=== PATIENT | female | born 1955 | race Caucasian/White ===

== ENCOUNTER → 2017-09-12 | Outpatient (CLI) | payer OTHER ==
--- NOTE | 2017-09-12 13:49 | US ---
EXAM DESCRIPTION: Extremity,Lower Bg Arteries: Ultrasound. CLINICAL HISTORY: PVD COMPARISON: None. TECHNIQUE: Doppler evaluation of the bilateral lower extremity arterial flow waveforms and velocities. FINDINGS: Arterial waveforms in the right lower extremity are all triphasic and minimally dampened in the right CYLINDER TESTER. More dampened in the femoral artery, popliteal artery. Peroneal artery and [employer]. No flow in the right DPA.. Arterial waveforms in the left lower extremity are monophasic in the left common femoral artery and more dampened in the proximal left femoral artery. No flow in the mid and distal left femoral artery. Dampened monophasic flow in the left popliteal, peroneal and left [employer]TING [employer] OPERATOR vessels. Significantly dampened monophasic waveform in the left DPA.. Comments: Bilateral peak systolic velocities reflect the waveforms. IMPRESSION: 1. Bilateral lower extremity arterial flow is significantly decreased with no flow in the distal right lower extremity and DPA. 2. No flow in the mid and distal left femoral artery. Diminished flow in the left lower leg is most likely due to collaterals. 3. Consider CTA aorta and bilateral lower extremities if clinically indicated. Electronically signed by: Dirk Lopez MD 09/12/2017 1:47 PM CDT
== END ==
LOC: US 12:24
PROVIDERS: ATTEND Family Medicine
DX: I73.9 Peripheral vascular disease, unspecified (principal); M79.604 Pain in right leg

== ENCOUNTER → 2017-09-12 | Outpatient (CLI) | payer OTHER ==
--- NOTE | 2017-09-12 16:38 | CT ---
EXAM DESCRIPTION: CTA Runoff CLINICAL HISTORY: 61 years, Female, PVD,PAIN IN RT LEG COMPARISON: Ultrasound lower extremity Doppler September TECHNIQUE: Rapid bolus administration of 100 mL of Isovue 370 IV contrast was performed with thin-section axial scanning of the abdomen, pelvis and lower extremities performed in a dynamic fashion. Reconstructed multiplanar and three dimensional MIP images created on a separate dedicated workstation are reviewed along with the source axial images and stored in the patient's medical record. FINDINGS: Mild scarring in the inferior lingula and right middle lobe. Heart is large. There is positive enhancement of cardiac chambers and lower aorta. CT angiography abdomen Positive enhancement of the aorta is seen without aneurysm. Arteriosclerotic irregularity is present. There is positive enhancement of celiac and superior mesenteric arteries as well as the inferior mesenteric artery. Positive enhancement of the renal arteries. Two renal arteries are seen on the left with single renal artery on the right. Arteriosclerotic plaque causes 40% narrowing of the origin of the right renal artery. The upper smaller left renal artery appears widely patent whereas the lower left renal artery is severely stenotic at the origin approximately 85-90% with poststenotic dilatation. The nephrograms appear symmetrical. Nonangiographic findings include mildly prominent pancreatic duct with no focal pancreatic lesion. No calcified stones in the gallbladder. Positive early enhancement of liver and spleen. CT angiogram pelvis Positive enhancement of the common iliac arteries. There is extensive arteriosclerotic plaque with high-grade stenosis of the right and right common iliac artery approximately 70% and left common iliac artery approximately 75%. Calcified severely stenotic internal iliac arteries are noted bilaterally. The external iliac artery on the right is severely narrowed at the obturator level approximately 90% and then appears completely occluded just below this level. Collateral vessels are seen around the occluded segment of the right external iliac artery with severely narrowed right common femoral artery and dense calcified plaque in the proximal right superficial femoral artery. There is 75% narrowing of the right common femoral artery below the occluded segment of the distal right external iliac artery. On the left, extensive plaque in the left external carotid artery seen with multiple areas of 50-75% narrowing. There is plaque at the left common femoral origin with severe narrowing of the origins of profunda femoral and superficial femoral arteries. CT angiogram lower extremities Right Severe narrowing of right common femoral artery approximately 75% is noted. Severe narrowing of the proximal left superficial femoral artery is seen with diminutive lumen opacified to the level of the proximal third of the right thigh. Below this level SFA appears occluded at multiple levels. Collateral vessels are seen extending into the thigh from the right profunda femoral artery which is severely narrowed just beyond its origin approximately 70-85 %. Multiple tandem lesions in the 30-75% range are noted in the right profunda femoral artery. More distally, small collateral vessels reconstitute the right popliteal artery which is 50% to 75% narrowed throughout its length. There is positive enhancement of the anterior tibial artery on the right as well as the tibioperoneal trunk. These are very small. Small posterior tibial and peroneal arteries are visible. Three opacified arteries are visible to the level of the proximal third of the calf. The posterior tibial and anterior tibial arteries are seen extending to the level of the ankle with faint opacification of these vessels extending into the dorsalis pedis and plantar arch regions. Left Moderate narrowing of the left common femoral artery is seen approximately 50%. At the bifurcation, severe narrowing of the proximal superficial femoral artery is noted approximately 80%. There is high-grade stenosis of the proximal left profunda femoral artery, 90+ percent. Below this level multiple tandem lesions of the profunda femoral artery are noted which provides collateral vessels to the thigh. There is occlusion of the proximal superficial femoral artery on the left. Prominent muscular collaterals are seen throughout the musculature of the left thigh and there is collateral reconstitution of the distal left superficial femoral artery and upper popliteal artery. Positive opacification of popliteal artery is seen with 50% stenosis. Positive enhancement of anterior tibial artery, tibioperoneal trunk, posterior tibial artery and peroneal arteries. These are very small in size. Three vessels can be seen contrast opacified to the level of the lower thigh. At the ankle, two vessels are seen with faint opacification of the dorsalis pedis artery and positive opacification of the posterior plantar arch. MIP images of the distal vessels are submitted confirming the findings. Coronal and sagittal reformatted images were evaluated. IMPRESSION: 50% stenosis of the right renal artery origin. Two left renal arteries with severe stenosis of the more distal renal artery origin with poststenotic dilatation. Severe stenoses of bilateral common iliac and external iliac arteries Occluded distal right external iliac artery proximal to the femoral origin. Severe stenoses of the origins of the bilateral superficial femoral and profunda femoral arteries with multiple severe tandem stenoses. Occluded right superficial femoral artery in the proximal third of the right thigh with collateral vessels reconstituting popliteal and calf vessels as described. Occlusion of the left superficial femoral artery just beyond its origin with severely stenotic origin of the left profunda femoral artery. Collateral vessels reconstitute the distal left superficial femoral artery, popliteal artery and arteries of the left calf. This exam was performed according to our departmental dose-optimization program, which includes automated exposure control, adjustment of the mA and/or kV according to patient size and/or use of iterative reconstruction technique. Total DLP equaled 777.12 mGycm. Electronically signed by: Buck Cr MD 09/12/2017 4:37 PM CDT
== END ==
LOC: RAD 14:30
PROVIDERS: ATTEND Family Medicine
DX: I73.9 Peripheral vascular disease, unspecified (principal); M79.604 Pain in right leg; I70.1 Atherosclerosis of renal artery; I70.203 Unspecified atherosclerosis of native arteries of extremities, bilateral legs

== ENCOUNTER → 2019-02-19 | Outpatient (CLI) | payer OTHER ==
--- NOTE | 2019-02-19 15:35 | CT ---
Procedure: CT LUNG SCREENING Exam Date: Ordering Provider: Ernesto Alexandre Clinical Indication: HX OF TOBACCO USE smoking cessation 18 months. 60 pack years. This patient meets eligibility criteria for low-dose CT lung cancer screening. Comparison: Chest x-ray November 2018. Technique: Using a multislice scanner, sequential helical axial imaging was obtained in the thorax, 2.5 mm thickness, 2.5 mm separation, from the level of the thoracic inlet through the lung bases without IV contrast. A low dose protocol was utilized for BMI less than 30: BMI: 19.2. CTDI: 1.76 mGy. 120. kVp. 45 mA. DLP 68.3 mGy-centimeters. 2D sagittal and coronal reconstructed images, 6.0 mm thickness, were obtained. This exam was performed according to our departmental dose optimization program which includes use of automated exposure control, adjustment of the mA and/or kV according to patient size and/or use of iterative reconstruction technique. Nodule measurements under 10 mm are given as mean value of 3 axes diameters. FINDINGS: Lungs and large airways: Small relatively uniform blebs in the upper lobes predominantly and in centrilobular distribution. Pleural parenchymal scars in the left lower lobe and thickening of the left major fissure. No abnormal nodules and no masses. No focal infiltrates. Pleura and space: Bilateral focal thickening more in the upper lung arora. No effusion or pneumothorax. Mediastinum and yvrose: evaluation limited by low dose technique and lack of IV contrast. Negative. Heart and great vessels: Coronary artery calcifications and stents. Atherosclerotic calcifications in the brachiocephalic vessels, aortic arch, and descending thoracic aorta. Ectatic ascending thoracic aorta. Chest wall, lower neck, axillae: Evaluation also limited by same factors as described above. Bilateral axillary lymph nodes normal size. Small right thyroid lobe. Bilateral breast macrocalcifications. Upper abdomen: Evaluation limited by low-dose technique. Atherosclerotic calcifications aorta and major branch vessels including. Normal size and density of the included spleen and adrenal glands. Osseous structures: Evaluation limited by low dose MIP technique. Spondylosis and minimal arthrosis in the sternomanubrial joint. IMPRESSION: Emphysematous changes most mostly upper lung arora. No abnormal nodules and no masses. No focal infiltrates.. [facility] Best Practice recommendations: Please see below for Lung RADS category and FOLLOW-UP.* *Lung RADS category Category 1 - No nodule or definitely benign nodules (probability of malignancy less than 1%). Follow-up: Continue annual screening with Low Dose Chest CT in 12 months. Electronically signed by: Dirk Lopez MD 02/19/2019 3:33 PM CDT
== END ==
LOC: CT 09:30
PROVIDERS: ATTEND Family Medicine
DX: Z87.891 Personal history of nicotine dependence (principal); R91.8 Other nonspecific abnormal finding of lung field

== ENCOUNTER → 2019-08-05 | Outpatient (CLI) | payer OTHER | LOC: GMAE 14:02 | PROVIDERS: ATTEND Family Medicine | DX: G60.3 Idiopathic progressive neuropathy (principal); G62.9 Polyneuropathy, unspecified ==

== ENCOUNTER → 2020-02-22 | Outpatient (CLI) | payer MEDICARE, OTHER ==
--- NOTE | 2020-02-22 12:22 | CT ---
Procedure: CT LUNG SCREENING Exam Date: February 22, 2020. Ordering Provider: Ernesto Alexandre Clinical Indication: ANNUAL LUNG SCREEN . Smoking cessation x 3 years. 40 pack year smoking history. This patient meets eligibility criteria for low-dose CT lung cancer screening. Comparison: Low-dose CT lung cancer screening February 2019. Technique: Using a multislice scanner, sequential helical axial imaging was obtained in the thorax, 2.5 mm thickness, 2.5 mm separation, from the level of the thoracic inlet through the lung bases without IV contrast. A low dose protocol was utilized for BMI less than 30: BMI: 22.3. CTDI: 1.76 mGy. 120. kVp. 45 mA. DLP 66 mGy-cm. 2D sagittal and coronal reconstructed images, 6.0 mm thickness, were obtained. This exam was performed according to our departmental dose optimization program which includes use of automated exposure control, adjustment of the mA and/or kV according to patient size and/or use of iterative reconstruction technique. Nodule measurements under 10 mm are given as mean value of 3 axes diameters. FINDINGS: Lungs and large airways: Bilateral small parenchymal blebs in a centrilobular distribution. Minimal bilateral perihilar peribronchial wall cuffing. Minimal pleural-parenchymal scarring bilaterally. No abnormal nodules and no mass. No acute or interval infiltrates Pleura and space: Bilateral apical pleural thickening. Other scattered sites of thickening. No acute process. Mediastinum and yvrose: evaluation limited by low dose technique and lack of IV contrast. No enlarged lymph nodes. No dominant solid mass. Heart and great vessels: Multiple calcifications in the coronary arteries, several brachiocephalic vessels, aortic arch and descending thoracic aorta with no interval change. Chest wall, lower neck, axillae: Evaluation also limited by same factors as described above. Normal size axillary nodes. Bilateral surgical clips to the airway and superior to the thyroid gland. Upper abdomen: Evaluation limited by low-dose technique. Atherosclerotic calcifications. No free air or free fluid in the included peritoneal space. Osseous structures: Evaluation limited by low dose MIP technique. Minimal spondylosis at multiple levels. Shoulder, clavicle, and sternal joints are not significantly degenerated. IMPRESSION: 1. Minimal emphysematous changes are stable. No abnormal nodule and no new mass. No interval or focal infiltrates.. [facility] Best Practice Recommendations: please see below for Lung RADS category and FOLLOW-UP.* *Lung RADS category Category 1 - No nodule or definitely benign nodules (probability of malignancy less than 1%). Follow-up: Continue annual screening with Low Dose Chest CT in 12 months. Electronically signed by: Dirk Lopez MD 02/22/2020 12:20 PM CDT
== END ==
LOC: CT 08:00
PROVIDERS: ATTEND Family Medicine
DX: Z12.2 Encounter for screening for malignant neoplasm of respiratory organs (principal); J43.9 Emphysema, unspecified; Z87.891 Personal history of nicotine dependence